=== PATIENT | female | born 2000 | race African-American/Black ===

== ENCOUNTER 2025-01-06 14:12 | Emergency (ER) | payer OTHER, SELFPAY ==
--- OUTSIDE RECORDS SUMMARY | 2025-01-06 14:18 | XMS_ITS | Referral Summary ---
Author Organization [facility] Address [address] [place] [phone] Care Team Providers Care Landscape Maintenance Internship Name Role Phone Arsh Ndiaye MD Unavailable [phone] Shelly Malave MD Primary Care Provide r Encounters Date Type Department Care Team Description 10/09/2024 Results Follow-Up [facility] Primary Care at [address] [phone] Shannan Willis, CURT HSV 2 IgG Antibody Blood 10/06/2024 10:05 AM AUCTION BLOCK CLERK Lab [address] [address] Exposure to STD 10/06/2024 9:30 AM AUCTION BLOCK CLERK Office Visit [facility] Primary Care at [address] [phone] Shannan Willis NP Exposure to STD (Primary Dx) from Last 3 Months Allergies No known active allergies Medications levonorgestreL (LILETTA) 20.1 mcg/24 hrs (6 yrs) 52 mg IUDIndications:Pre gnancy Contraception once Buy [place] Bill LOT 96287-21 EXP 08/2022 1 Active valACYclovir (Valtrex) 1 gram tablet Take 1 tablet (1,000 mg total) by mouth daily 30 tablet 3 Active FLUoxetine (PROzac) 10 mg tablet/capsule Take 1 tablet/caps ule (10 mg total) by mouth daily 90 capsule 2 5 09/28/19 26 Active Active Problems Problem Noted Date Diagnosed Date Major depressive disorder, recurrent, mild 03/22 Assessment & Plan (09/27/2024 9:19 AM AUCTION BLOCK CLERK): In remission Stable / clinically quiescent. Will continue to monitor. Continue prozac 10mg daily -SI/-HI F/u in 6 months Assessment & Plan (03/22/2024 11:36 AM CDT): In remission Stable / clinically quiescent. Will continue to monitor. Continue prozac 10mg daily -SI/-HI F/u via televisit in 6 months School physical exam 07/23/2023 Assessment & Plan (07/23/2023 1:26 PM AUCTION BLOCK CLERK): School physical form completed. Patient will need to schedule appointment for Nurse Visit to obtain Tdap and PPD test in 3 days Patient healthy exam normal Follow up with pcp as scheduled BMI 27.0-27.9,adult 07/23/2023 Anxiety 03/22/2023 Assessment & Plan (09/28/2024 2:31 PM AUCTION BLOCK CLERK): Chronic At goal Continue prozac 10mg daily -SI/-HI F/u in 6 months Assessment & Plan (03/22/2024 11:29 AM CDT): stable Continue prozac 10mg daily -SI/-HI F/u in 6 months via televisit Assessment & Plan (01/04/2024 3:17 PM CDT): stable Continue prozac 10mg daily -SI/-HI F/u in 3 months at annual Assessment & Plan (11/01/2023 9:09 AM CDT): stable Continue prozac 10mg daily Discussed if no improvement in a month, can take 2 tablets and follow up at the next appointment F/u in 2 month Assessment & Plan (10/04/2023 10:53 AM AUCTION BLOCK CLERK): unchanged Cut lexapro in half for a week and then stop, and start the prozac Risks and benefits discussed Referral to therapy F/u in 1 month Assessment & Plan (03/22/2023 1:26 PM CDT): Stable Restart lexapro 10mg daily Has taken this in the past and is aware of the risk and benefits F/u in 6 months Encounter for wellness examination 03/19/2023 Assessment & Plan (03/21/2024 7:16 AM CDT): Ordered CBC, cmp, lipid, hgb a1c Pap smear follows up with ob F/u in 1 year for annual Assessment & Plan (03/22/2023 1:25 PM CDT): Ordered CBC, cmp, lipid, hgb a1c, HIV, hep c, TSH w/ reflex to t4 Pap smear follows up with ob F/u in 1 year for annual Vitamin D deficiency 02/15/2020 Resolved Problems Problem Noted Date Diagnosed Date Resolved Date COVID-19 virus detected 04/09/2020 01/0 02/2025 Overview (04/09/2020): Positive on 04-09-20 Vaginal delivery 09/27/2020 39 weeks gestation of 09/27/2020 Immunizations Immunization Administration Dates Next Due DTaP 03/09/2001, 0,04/21/2000, 0 DTaP, Unspecified 04/01/2005 HPV, Quadrivalent 03/19/2014,01/16/2014 HPV9 03/23/2016 Hep A, Ped Unspecified 03/12/2011,01/30/2009 Hep B, Adolescent or Pediatric 06/21/2000,1999,1999 HiB 03/09/2001, 0,04/21/2000, 0 IPV 03/09/2001, 0,04/21/2000, 0 Influenza, Unspecified 10/06/2024(Deferr ed: Patient Refused),09/28/2024(Deferred: Patient Refused),11/01/2023(Deferred: Patient Refused),07/23/2023(Deferred: Patient Refused),06/04/2023 MMR 08/16/2020(Deferred: Contraindication),04/01/2005,03/09/2001 Meningococcal MCV4P (Menactra) 03/23/2016,2010 PPD TEST 08/03/2023, 3,07/26/2023, 3 08/03/2023 Pneumococcal Conjugate 7-Valent 03/09/2001 Polio, Unspecified 04/01/2005 Tdap 07/26/2023,03/12/2011 Varicella 01/30/2009,03/09/2001 Social History Tobacco Use Types Packs/Day Years Used Date Smoking Tobacco: Never Smokeless Tobacco: Never Tobacco Cessation:Counseling Given: Not Answered Alcohol Use Standard Drinks/Week Comments Never 0 (1 standard drink = 0.6 oz pur e alcohol) AUDIT-C Answer Date Recorded Q1: How often do you have a drink containing alcohol? Never 10/06/2024 Q2: How many drinks containi ng alcohol do you have on a typical day when you are drinking? Patient does not drink Q3: How often do you have si x or more drinks on one occasion? Never 10/06/2024 PHQ-2 Answer Date Recorded PHQ-2 Total Score (If total score is 3 or more points, staff should administer the PHQ-9) 2 10/06/2024 Comments No Sex and Gender Information Value Date Recorded Sex Assigned at Not on file Legal Sex Female 8:50 AM AUCTION BLOCK CLERK Gender Identity Not on file Sexual Orientation Not on file Last Filed Vital Signs Vital Sign Reading Time Taken Comments Blood Pressure 100/60 10/06/2024 9:24 AM AUCTION BLOCK CLERK Pulse 102 10/06/2024 9:24 AM AUCTION BLOCK CLERK Temperature 36.7 C (98.1 F) 10/06/2024 9:24 AM AUCTION BLOCK CLERK Respiratory Rate 16 03/22/2024 10:48 AM CDT Oxygen Saturation 97% 10/06/2024 9:24 AM AUCTION BLOCK CLERK Inhaled Oxygen Concentration - - Weight 60.3 kg (133 lb) 10/06/2024 9:24 AM AUCTION BLOCK CLERK Height 156.2 cm (5' 1.5) 10/06/2024 9:24 AM AUCTION BLOCK CLERK Body Mass Index 24.72 10/06/2024 9:24 AM AUCTION BLOCK CLERK Plan of Treatment Not on file Procedures Procedure Name Priority Date/Time Associated Diagnosis Comments HSV 2 ANTIBODY, IGG Routine 10/06/2024 1 0:17 AM AUCTION BLOCK CLERK Exposure to STD HEPATITIS C ANTIBODY Routine 09/22/2024 8:30 AM AUCTION BLOCK CLERK Routine screening for STI (sexually transmitted infection) HM PAP SMEAR WITH HPV Routine 12/20/2023 10:49 AM CDT from Last 3 Months or Most Recently Relevant to Health Maintenance Results * HSV 2 IgG Antibody Blood (10/06/2024 10:17 AM AUCTION BLOCK CLERK) HSV 2 IgG Nonreactive Nonreactive Comment: Interpretive Data 1. Nonreactive: No detectable IgG antibody to HSV-2. 2. Equivocal: Presence or absence of detectable antibodies to HSV-2 cannot be determined and the test should be repeated. 3. Reactive: Indicates presence of detectable IgG antibody to HSV-2. Current interpretive data was last revised on 2022. Testing performed by: [facility], [address] [facility], [place]., [address] Blood 10/06/2024 10:1 7 AM AUCTION BLOCK CLERK 10/06/2024 2:23 PM AUCTION BLOCK CLERK us Shannan Willis NP LAB MICROBIOLOGY - [facility] AL ORDERABLES Final Result Performing Organization Address City/State/[facility] Co de Phone Number [facility] [place] 1 [facility] Department [place] [address] * Hepatitis C antibody Blood (09/22/2024 8:30 AM AUCTION BLOCK CLERK) Hep C Ab Nonreactive Nonreactive Comment: Interpretive Data Nonreactive: Antibodies to HCV not detected. Does NOT exclude the possibility of recent exposure to HCV. Equivocal: Equivocal for HCV antibodies. Supplemental molecular testing will be automatically performed to determine infection status in accordance with current CDC screening recommendations. Reactive: Positive for HCV antibodies. This may represent current or past HCV infection. Supplemental molecular testing will be automatically performed to determine current infection status in accordance with current CDC screening recommendations. Interpretive data was last revised on 2019. Testing performed by: [facility], [address] [place] [address], [place]., [address] Blood 09/22/2024 8:30 AM AUCTION BLOCK CLERK 09/22/2024 11:25 AM AUCTION BLOCK CLERK Arsh Ndiaye MD LAB MICROBIOLOGY - GENERAL ORDERABLES Final Result [facility] 1 [facility] Department [place] [address] * HM PAP SMEAR WITH HPV (12/20/2023 10:49 AM CDT) Scribed Pap Smear w/HPV Normal us Historical Provider HEALTH MAINTENANCE Edited Result - Final from Last 3 Months or Most Recently Relevant to Health Maintenance Insurance Advance Directives For more information, please contact: [phone] * Full Code (Latest Code Status on File) Date Activated Date Inactivated Comments 08/14/2020 12:01 AM 08/16/2020 9:33 PM Full CPR in c ase of cardiopulmonary arrest Care Teams Landscape Maintenance Internship Relationship Specialty Start Date End Date Shelly Malave MD [address] [place] [address] PCP - General Family Medicine 03/22/23 Arsh Ndiaye MD [address] [place] [address] Supervisor Gas Meter Repair Obstetrics and Gynecology 08/16/20
--- OUTSIDE RECORDS SUMMARY | 2025-01-06 14:18 | XMS_ITS | Clinical Summary ---
Author Organization [facility] Address [address] [place] [address] Phone Care Team Providers Care Haunted History Tour Guide Name Role Phone Gonzalo Scott MD Primary Care Provider [phone] Allergies No known active allergies Medications Levonorgestrel (Liletta) 20.1 MCG/DAY IUD once [place] [address]-71 EXP 08/202211/11/2020 Active FLUoxetine (PROzac) 10 MG Capsule Take 10 mg by mouth daily. 03/22/2024 Active Active Problems No known active problems Immunizations Immunization Administration Dates Next Due DTAP VACCINE 03/09/2001, 0,04/21/2000,01/06 DTAP VACCINE, UNSPECIFIED FORMULATION 04/01/2005 Hepatitis A, Pediatric, Unsp ecified Formulation 03/12/2011,01/30/2009 Hepatitis B Vaccine, Pediatric/adolescent 06/21/2000,04/21/2000,1999 Hib Vaccine,unspecified Formulation 08/2000,06/21/2000,04/21/2000,01/06 Human Papillomavirus (HPV) 9 -valent Vaccine 03/23/2016 Human Papillomavirus Vaccine (HPV), quadrivalent 03/19/2014,01/16/2014 Inactivated Polio Vaccine 03/09/2001,,04/21/2000,01/06 Influenza Vaccine,unspecifie d Formulation 06/04/2023 MMR Vaccine 04/01/2005,03/09/2001 Meningococcal Vaccine 03/23/2016,03/12/2011 Pneumococcal Vaccine Peds - 7 Valent 03/09/2001 Polio Vaccine,unspecified Formulation 04/01/2005 TDAP Vaccine 07/26/2023,03/12/2011 Tuberculin Skin Test; Purifi ed Protein Derivative Solutiol 08/03/2023,07/26/2023 Varicella Vaccine Live 01/30/2009,03/09/2001 Social History Tobacco Use Types Packs/Day Years Used Date Smoking Tobacco: Never Smokeless Tobacco: Never Tobacco Cessation:Counseling Given: Not Answered Alcohol Use Standard Drinks/Week Comments Not Currently 0 (1 standard drink = 0.6 oz pur e alcohol) Sexually Active Control Partners Comments Yes I.U.D. Male Comments No Sex and Gender Information Value Date Recorded Sex Assigned at Not on file Legal Sex Female 7:44 PM CDT Gender Identity Not on file Sexual Orientation Not on file Last Filed Vital Signs Vital Sign Reading Time Taken Comments Blood Pressure 102/76 09/15/2024 3:34 PM SENIOR TELECOMMUNICATIONS ENGINEER Pulse 79 09/15/2024 3:34 PM SENIOR TELECOMMUNICATIONS ENGINEER Temperature 36.9 C (98.5 F) 09/15/2024 3:34 PM SENIOR TELECOMMUNICATIONS ENGINEER Respiratory Rate 14 09/15/2024 3:34 PM SENIOR TELECOMMUNICATIONS ENGINEER Oxygen Saturation 98% 09/15/2024 3:34 PM SENIOR TELECOMMUNICATIONS ENGINEER Inhaled Oxygen Concentration - - Weight 63.5 kg (140 lb) 09/15/2024 3:34 PM SENIOR TELECOMMUNICATIONS ENGINEER Height 157.5 cm (5' 2) 02/08/2022 9:13 AM CDT Body Mass Index 25.61 02/08/2022 9:13 AM CDT Plan of Treatment Health Maintenance Due Date Last Done Comments Hepatitis C Virus (HCV) Screening 1999 Pap Smear 11/02/2020 Influenza Immunization (#1) 2024 06/04/2023 SARS-COV-2 Immunization ( season) 2024 05/08/2021, 04/16/2021 DTaP/Tdap/Td Immunization (8 - Td or Tdap) 07/26/2033 07/26/2023, 03/12/2011, 04/01/2005, Additional history exists Respiratory Syncytial Virus (RSV) Immunization (Adult) (1 - 1-dose 75+ series) 11/02/2074 Hepatitis B Immunization Completed 000, 04/21/2000, 1999 Pneumococcal Immunization Combined Aged Out 03/09/2001 No longer eligible based on patient's age to complete this topic Human Papillomavirus (HPV) Immunization Completed 03/23/2016, 03/19/2014, 01/16/2014 Meningococcal Immunization (ACWY) Completed 03/23/2016, 03/12/2011 TdaP Immunization Discontinued 07/26/2023, 03/12/2011 Rotavirus Immunization Aged Out No lo nger eligible based on patient's age to [place] [address] MEDICAID [place] Care Teams Haunted History Tour Guide Relationship Specialty Start Date End Date Gonzalo Scott MD [address] [place] [address] PCP - General Family Medicine 04/08/20
--- OUTSIDE RECORDS SUMMARY | 2025-01-06 14:18 | XMS_ITS | Clinical Summary ---
Author Organization [facility] Address [address] [place] [address] Care Team Providers Care Pressing Machine Tender Name Role Phone Arsh Ndiaye MD Unavailable [phone] Shelly Malave MD Primary Care Provide r Allergies No known active allergies Medications levonorgestreL (LILETTA) 20.1 mcg/24 hrs (6 yrs) 52 mg IUDIndications:Pre gnancy Contraception once Buy [place] [address]14-36 EXP 08/2022 1 Active valACYclovir (Valtrex) 1 gram tablet Take 1 tablet (1,000 mg total) by mouth daily 30 tablet 3 Active FLUoxetine (PROzac) 10 mg tablet/capsule Take 1 tablet/caps ule (10 mg total) by mouth daily 90 capsule 2 5 09/28/19 26 Active Active Problems Problem Noted Date Diagnosed Date Major depressive disorder, recurrent, mild 03/22 Assessment & Plan (09/27/2024 9:19 AM PULP MILL SUPERVISOR): In remission Stable / clinically quiescent. Will continue to monitor. Continue prozac 10mg daily -SI/-HI F/u in 6 months Assessment & Plan (03/22/2024 11:36 AM CDT): In remission Stable / clinically quiescent. Will continue to monitor. Continue prozac 10mg daily -SI/-HI F/u via televisit in 6 months School physical exam 07/23/2023 Assessment & Plan (07/23/2023 1:26 PM PULP MILL SUPERVISOR): School physical form completed. Patient will need to schedule appointment for Nurse Visit to obtain Tdap and PPD test in 3 days Patient healthy exam normal Follow up with pcp as scheduled BMI 27.0-27.9,adult 07/23/2023 Anxiety 03/22/2023 Assessment & Plan (09/28/2024 2:31 PM PULP MILL SUPERVISOR): Chronic At goal Continue prozac 10mg daily [...] month Assessment & Plan (10/04/2023 10:53 AM PULP MILL SUPERVISOR): unchanged Cut lexapro in half for a [...] delivery 09/27/2020 39 weeks gestation of 09/27/2020 Encounters Date Type Department Care Team Description 10/09/2024 Results Follow-Up [facility] Primary Care at [address] [phone] Shannan Willis, INDUSTRIAL ECONOMIST HSV 2 IgG Antibody Blood 10/06/2024 10:05 AM PULP MILL SUPERVISOR Lab [address] [phone] Exposure to STD 10/06/2024 9:30 AM PULP MILL SUPERVISOR Office Visit [facility] Primary Care at [address] [phone] Shannan Willis, INDUSTRIAL ECONOMIST Exposure to STD (Primary Dx) from Last 3 Months Immunizations Immunization Administration Dates Next Due DTaP [...] Polio, Unspecified 04/01/2005 Tdap 07/26/2023,03/12/2011 Varicella 01/30/2009,03/09/2001 Medical History Medical History Date Comments ADHD (attention deficit hyperactivity disorder) Allergic Anemia Anxiety Family History Medical History Relation Name Comments Diabetes Maternal Grandmother Diabetes Mother's Sister Stroke Paternal Grandmother Relation Name Status Comments Maternal Grandmother Mother's Sister Paternal Grandmother Social History Tobacco Use Types Packs/Day Years [...] on file Legal Sex Female 8:50 AM PULP MILL SUPERVISOR Gender Identity Not on file Sexual Orientation Not on file Obstetrics History Para Term AB IAB SAB Ectopic Multiple Livin g Live Births 1 1 1 0 0 0 0 0 0 1 1 Date Outcome GA Total Labor Labor/2nd/3rd Weight Sex Type Anes PTL Sharda A1 A5 Name Clin 2020 Term 39w 0d 3h 52m 1h 00m/2h 44m/0h 08m 3.311 kg (7 lb 4.8 oz) F Vag-S pont Epidur al N Livin g 9 9 BROWN ,GIRL PRECI HUNG Ndiaye , Arsh Carrero MD Complications:None Delivery Location:[facility] ([facility]) Last Filed Vital Signs Vital Sign Reading Time Taken Comments Blood Pressure 100/60 10/06/2024 9:24 AM PULP MILL SUPERVISOR Pulse 102 10/06/2024 9:24 AM PULP MILL SUPERVISOR Temperature 36.7 C (98.1 F) 10/06/2024 9:24 AM PULP MILL SUPERVISOR Respiratory Rate 16 03/22/2024 10:48 AM CDT Oxygen Saturation 97% 10/06/2024 9:24 AM PULP MILL SUPERVISOR Inhaled Oxygen Concentration - - Weight 60.3 kg (133 lb) 10/06/2024 9:24 AM PULP MILL SUPERVISOR Height 156.2 cm (5' 1.5) 10/06/2024 9:24 AM PULP MILL SUPERVISOR Body Mass Index 24.72 10/06/2024 9:24 AM PULP MILL SUPERVISOR Plan of Treatment Health Maintenance Due Date Last Done Comments Covid-19 Vaccine ( season) 2024 05/08/2021, 04/16/2021 Regular Well Visit/Exam 18-64 03/22/2025 03/22/2024, 12/20/2023, 03/22/2023, Additional history exists Influenza Vaccine (Season Ended) 2025 06/04/2023 Depression Screening 10/06/2025 10/06/2024, 09/28/2024, 03/22/2024, Additional history exists Cervical Cancer Screening 12/19/20282023, 12/04/2022, 12/01/2021, Additional history exists DTaP/Tdap/Td Vaccine (8 - Td or Tdap) 07/26/2033 07/26/2023, 03/12/2011, 04/01/2005, Additional history exists Hepatitis B Screening Completed 06/21/2000 , 04/21/2000, 1999 Pneumococcal vaccine <65 Aged Out 03/09/2001 No longer eligible based on patient's age to complete this topic Varicella Vaccines Completed 01/30/2009, 03/09/2001 HPV Vaccines Completed 03/23/2016, 03/09, 01/16/2014 Hepatitis C Screening Completed 09/22/2024 , 08/22/2024, 07/03/2024, Additional history exists Procedures Procedure Name Priority Date/Time Associated Diagnosis Comments HSV 2 ANTIBODY, IGG Routine 10/06/2024 1 0:17 AM PULP MILL SUPERVISOR Exposure to STD HEPATITIS C ANTIBODY Routine 09/22/2024 8:30 AM PULP MILL SUPERVISOR Routine screening for STI (sexually transmitted infection) HM PAP SMEAR WITH HPV Routine 12/20/2023 10:49 AM CDT from Last 3 Months or Most Recently Relevant to Health Maintenance Results * HSV 2 IgG Antibody Blood (10/06/2024 10:17 AM PULP MILL SUPERVISOR) HSV 2 IgG Nonreactive Nonreactive Comment: Interpretive Data 1. Nonreactive: No detectable IgG antibody to HSV-2. 2. Equivocal: Presence or absence of detectable antibodies to HSV-2 cannot be determined and the test should be repeated. 3. Reactive: Indicates presence of detectable IgG antibody to HSV-2. Current interpretive data was last revised on 2022. Testing performed by: [facility], [address] [facility], [place]., [address] Blood 10/06/2024 10:1 7 AM PULP MILL SUPERVISOR 10/06/2024 2:23 PM PULP MILL SUPERVISOR us Shannan Willis NP LAB MICROBIOLOGY - [facility] AL ORDERABLES Final Result Performing Organization Address City/State/[facility] Co de Phone Number [facility] [place] 1 [facility] Department [place] [address] * Hepatitis C antibody Blood (09/22/2024 8:30 AM PULP MILL SUPERVISOR) Hep C Ab Nonreactive Nonreactive Comment: Interpretive [...] last revised on 2019. Testing performed by: [facility], [address] [place] [address], [place]., [address] Blood 09/22/2024 8:30 AM PULP MILL SUPERVISOR 09/22/2024 11:25 AM PULP MILL SUPERVISOR Arsh Ndiaye MD LAB MICROBIOLOGY - GENERAL ORDERABLES Final Result [facility] 1 [facility] Department [place] [address] * HM PAP SMEAR WITH HPV (12/20/2023 10:49 AM CDT) Scribed Pap Smear w/HPV Normal Historical Provider HEALTH MAINTENANCE Edited Result - Final from Last 3 Months or Most Recently Relevant to Health Maintenance Insurance Advance Directives For more information, please contact: [phone] * Full Code (Latest Code Status on File) Date Activated Date Inactivated Comments 08/14/2020 12:01 AM 08/16/2020 9:33 PM Full CPR in c ase of cardiopulmonary arrest Care Teams Pressing Machine Tender Relationship Specialty Start Date End Date Shelly Malave MD [address] [facility] [address] [place] [address] PCP - General Family Medicine 03/22/23 Arsh Ndiaye MD [address] [facility] [address] [place] [address] Pharmacist Assistant Obstetrics and Gynecology 08/16/20
[2025-01-06 14:26] VITALS: BP 124/78; PULSE 77; RESP 20; TEMP 36.4; O2SAT 100
--- NOTE | 2025-01-06 15:07 | ED.FEMALEGU ---
HPI - Female Genitourinary General Chief complaint: Urogenital-Female Stated complaint: UTI Time Seen by Provider: 01/06/25 15:07 Source: patient, RN notes reviewed and old records reviewed Mode of arrival: ambulatory Limitations: no limitations History of Present Illness HPI Narrative: 24 year old female who presents to [facility] care with complaints of having some pelvic pain and some back pain and reports white vaginal discharge that has foul odor for the past 2 days. Patient reports that sh has had no vaginal bleeding, denies any fevers, chills or sweats. Patient reports that she is not concerned for STD's but would like to be tested due to symptoms. Patient does have IUD in place as control. MD elicited complaint: UTI Onset (ago): day(s) (2) Vaginal discharge: white and vaginal odor Treatment prior to arrival: none Related Data Home Medications ?Medication ?Instructions ?Recorded ?Confirmed ?Last Taken ?Type levonorgestrel 20.4 mcg/24 hr (up 1 device intrauterine ONCE 01/28/21 12/05/21 Unknown History to 8 yrs) 52 mg intrauterine device (Liletta) escitalopram oxalate 10 mg tablet 10 mg PO DAILY 12/05/21 12/05/21 Unknown History (Lexapro) Allergies Allergy/AdvReac Type Severity Reaction Status Date / Time No Known Allergies Allergy Verified 01/06/25 14:28 Review of Systems Review of Systems: CONSTITUTIONAL: Denies fever, chills, or sweats. CARDIOVASCULAR: Denies chest pain, palpitations, or edema. RESPIRATORY: Denies cough or dyspnea. GASTROINTESTINAL: Denies abdominal pain, nausea, vomiting, or diarrhea. states some pelvic discomfort GENITOURINARY: Reports no dysuria, frequency, urgency. Denies flank pain or hematuria. reports white odorous vaginal discharge. SKIN: Denies rash or itching. MUSCULOSKELETAL: Reports some back pain or myalgia. Denies CVA tenderness NEUROLOGIC: Denies headache All systems reviewed & are unremarkable except as noted in HPI and below [facility] Past Medical History Medical History (Updated 01/07/25 @ 00:01 by Background Daemon) Encounter for routine adult health examination without abnormal findings BMI 23.0-23.9, adult Family history of diabetes mellitus Anxiety and depression Vitamin D deficiency Fullness of neck History of depression Personal history of COVID-19 Encounter to establish care On fpc drug therapy BMI 22.0-22.9, adult Social History Social History Smoking status: Never smoker Comments At time of signature, agree with nursing past medical, surgical, social and family history. There is no relevant family history pertinent to the presenting complaint Exam Narrative: GENERAL: Well-appearing, well-nourished, and in no acute distress. HEAD: Normocephalic, atraumatic. NECK: Supple. no lymphadenopathy CHEST: Clear to auscultation. No respiratory distress.SAO2 100% on room air HEART: Regular rate and rhythm. No murmur heard. Normal peripheral pulses. ABDOMEN: Soft, nontender, nondistended, normal active bowel sounds reports mild pelvic discomfort with vaginal discharge and some low back pain. vaginal discharge white and odorous. No CVA tenderness, reports no urinary burning urgency or any frequency. EXTREMITIES: Normal range of motion. No edema. SKIN: Warm, dry, no rash. NEURO: No focal deficits. Alert and oriented x3. : Speculum Exam - Vagina: abnormal vaginal discharge white and malodorous Speculum Exam - Cervix: normal appearance of the cervix Other: Speculum examination with assembly hand :vaginal cultures for STD of GC Chlamydia, and trichomonas obtained, BV and genital culture obtained and sent for evaluation. no external lesions noted Course Course Emergency Course: Patient is aware of diagnosis, understands and agrees to treatment plan.? Anticipatory guidance given.? Patient agrees to follow-up as directed and is aware of reasons to seek care at the emergency department. Portions of this record may have been created with voice recognition software Level of Care: Express Care Visit Vital Signs Vital signs: Vital Signs Temperature 36.4 C L 01/06/25 14: Pulse Rate 77 01/06/25 14: Respiratory Rate 20 01/06/25 14: Blood Pressure 124/78 01/06/25 14:26 Pulse Oximetry 100 01/06/25 14:26 Oxygen Delivery Room Air 01/06/25 14: Temperature 36.4 C L 01/06/25 14: Pulse Rate 77 01/06/25 14:26 Respiratory Rate 20 01/06/25 14:26 Blood Pressure 124/78 01/06/25 14:26 Pulse Oximetry 100 01/06/25 14:26 Oxygen Delivery Room Air 01/06/25 14:26 MDM - Female Genitourinary MDM Narrative Medical decision making narrative: Exam findings and UA show no acute concerns or changes; patient is non-toxic appearing and is in no distress.? Patient is appropriate for outpatient treatment and follow-up. Differential Diagnosis Differential diagnosis: Likely urinary tract infection, bacterial vaginosis, vaginitis, cystitis and other (pelvic disccomfort and discharge) Lab Data Attestation: I reviewed the patient's lab results. Lab results narrative: urine dip and culture sent. swabs sent for GC, chlamydia and trichomonas, BV vaginal culture, and genital culture sent. Labs: Lab Results 01/06/25 01/06/25 01/06/25 Range/Units 14:34 15:37 15:39 POC Urine Color Yellow POC Urine Clarity Cloudy POC Urine pH 7.0 POC Ur Specif [place] 1.025 POC Urine Protein Negative (Negative) POC Ur Glucose (UA) Negative (Negative) POC Urine Ketones Negative (Negative) POC Urine Blood Negative (Negative) POC Urine Nitrite Negative (Negative) POC Urine Bilirubin Negative (Negative) POC Urine Urobilinogen 1.0 POC U Leukocyte Esteras Negative (Negative) C. trachomatis (PCR) Not detected (NOT DETECTE) N. gonorrhoeae (PCR) Not detected (NOT DETECTE) T. vaginalis (PCR) Not detected (NOT DETECTE) Bact Vaginosis Panel Pending reviewed Critical Care Time Critical Care Time Critical Care Time: No Discharge Plan Discharge Clinical Impression: Vaginal discharge, Bacterial vaginosis, Screen for STD (sexually transmitted disease) Patient Disposition: Home Condition: Stable Instructions: Antibiotic Form, Bacterial Vaginosis (ED) Additional Instructions: Flagyl take as prescribed cannot drink any alcohol while on this medication and 2 days after completed absolutely no sexual intercourse until test results back you will be notified STD testing and BV and genital culture as soon as possible Tylenol or ibuprofen for any fever pain follow-up with [facility] of any further complaints or concerns monitor for any fevers If your symptoms persist, change or worsen significantly before you can contact your personal physician then please, without delay, go to the emergency department for further evaluation. Follow-up with PCP in 7-10 days or sooner if needed Patient Language: Romansh Prescriptions: New metronidazole 500 mg tablet 500 mg PO BID Qty: 14 0RF No Action Liletta 20.1 mcg/24 hrs (6 yrs) 52 mg intrauterine device 1 device intrauterine ONCE Rx Instructions: as a single dose escitalopram oxalate [Lexapro] 10 mg tablet 10 mg PO DAILY Follow-up/Referrals: Shelly Herrmann [Other] Time of Disposition: 15:44 Quality [place] Coma Scale Eyes: Open Verbal: Oriented and Alert Motor: Follows Commands Kimberly Coma Total Score: 15
[2025-01-06 15:10] LABS: EDUAAPPEAR Cloudy; EDUABILI Negative (Negative); EDUABLOOD Negative (Negative); EDUACOLOR1 Yellow; EDUAGLUCOSE Negative (Negative); EDUAKETONE Negative (Negative); EDUALEUKO Negative (Negative); EDUANITRATE Negative (Negative); EDUAPROTEIN Negative (Negative); EDUASPGRAVITY 1.025
[2025-01-06 20:05] LABS: Trichomonas Vag PCR NOT DETECTED (NOT DETECTE)
[2025-01-06 20:27] LABS: Chlamydia trachomatis NOT DETECTED (NOT DETECTE); Neisseria gonorrhoeae PCR NOT DETECTED (NOT DETECTE)
[2025-01-08 14:28] LABS: Bacterial Vaginosis POSITIVE (NEGATIVE)
== END 2025-01-06 15:52 | disposition home or self-care (01) ==
PROVIDERS: Emergency Provider Registered Nurse
DX: N76.0 Acute vaginitis (principal); Z11.3 Encounter for screening for infections with a predominantly sexual mode of transmission
CPT/HCPCS: 81003; 81513; 87070; 87086; 87491; 87591; 87661; 99213; G0463